=== PATIENT | male | born 1985 | race Two or more races ===

== ENCOUNTER 2024-05-02 11:35 | Emergency (ER) | payer MEDICAID, OTHER ==
[~2024-05-02] VITALS: Ht 175.3 cm; Wt 95.4 kg
[2024-05-02 12:14] VITALS: BP 133/87; PULSE 82; RESP 16; TEMP 98; O2SAT 98
[2024-05-02] MEDS: cefTRIAXone SOD 1,000 MG VL IM ONE (16:11)
[2024-05-02] MEDS ORDERED: CEPH500C PO (16:23)
[2024-05-02] MEDS ORDERED: IBUP-1454 PO (16:23)
== END 2024-05-02 16:26 | disposition home or self-care (01) ==
LOC: ER 11:41
DX: S60.552A Superficial foreign body of left hand, initial encounter (principal); Z79.899 Other long term (current) drug therapy; X58.XXXA Exposure to other specified factors, initial encounter; Y93.89 Activity, other specified; Y92.89 Other specified places as the place of occurrence of the external cause; Y99.8 Other external cause status
CPT/HCPCS: 10120; 76881; 96372; 99285; J0696

== ENCOUNTER 2024-10-10 01:51 | Emergency (ER) | payer MEDICAID ==
[~2024-10-10] VITALS: Ht 175.3 cm; Wt 90.0 kg
[~2024-10-10 01:51] MED LIST: CEPH500C PO; IBUP-1454 PO
[2024-10-10 02:13] VITALS: BP 149/89; PULSE 114; RESP 16; TEMP 98.6; O2SAT 98
[2024-10-10] MEDS ORDERED: DOXY100C4 PO (02:21)
[2024-10-10] MEDS ORDERED: IBUP-1456 PO (02:21)
--- NOTE | 2024-10-10 02:21 | ED.PDOC ---
History of Present Illness(SKN HPI Comments C/C of possible spider bite to left buttock. Noted redness, no odor, no drainage. Skin temperature WNL. Pt tachy at 114, other VSS. Denies PMH. NKDA denies nausea vomiting fever or chills. Chief Complaint: Insect Bite Time Seen by MD: 01:58 Primary Care Provider: TARIK History of Present Illness: Nurses Notes, Medications, Allergies Allergies: Coded Allergies: NO KNOWN ALLERGIES (Unverified , 05/02/24) Home Meds Active Scripts Ibuprofen (Ibuprofen) 800 Mg Tab, 1 TAB PO TID PRN for 4 Days, #12 TAB Prov:RUPAL SILVER NAIL GALVANIZER 10/10/24 Doxycycline Hyclate (Doxycycline Hyclate) 100 Mg Cap, 100 MG PO BID for 7 Days, #14 CAP Prov:RUPAL SILVER NAIL GALVANIZER 10/10/24 Cephalexin Monohydrate (Cephalexin) 500 Mg Cap, 1 CAP PO QID for 5 Days, #20 CAP 0 Refills Prov:VISHNU PENNINGTON NP 05/02/24 Ibuprofen (Ibuprofen) 600 Mg Tab, 1 TAB PO TIDWM for 10 Days, #30 TAB 0 Refills Prov:VISHNU PENNINGTON NP 05/02/24 Mode of Arrival: Ambulatory Past Medical History PAST MEDICAL HISTORY: Denies Surgical History: Denies all surgeries Family History Family History: Unknown Social History Smoker: Non-Smoker Alcohol: Denies ETOH Use Drugs: Denies Drug Use Constitutional: denies: chills, diaphoresis, fatigue, fever, malaise, sweats, weakness, others EENTM: denies: blurred vision, double vision, ear bleeding, ear discharge, ear drainage, ear pain, ear ringing, eye pain, eye redness, hearing loss, mouth pain, mouth swelling, nasal discharge, nose bleeding, nose congestion, nose pain, photophobia, tearing, throat pain, throat swelling, voice changes, others Respiratory: denies: cough, hemoptysis, orthopnea, SOB at rest, shortness of breath, SOB with excertion, stridor, wheezing, others Cardiovascular: denies: chest pain, dizzy spells, diaphoresis, Dyspnea on exertion, edema, irregular heart beat, left arm pain, lightheadedness, palpitations, PND, syncope, others Gastrointestinal: denies: abdomen distended, abdominal pain, blood streaked bowels, constipated, diarrhea, dysphagia, difficulty swallowing, hematemesis, melena, nausea, poor appetite, poor fluid intake, rectal bleeding, rectal pain, vomiting, others Genitourinary: denies: burning, dysuria, flank pain, frequency, hematuria, incontinence, penile discharge, penile sore, pain, testicle pain, testicle swelling, urgency, others Neurological: denies: dizziness, fainting, headache, left sided numbness, left sided weakness, numbness, paresthesia, pre-existing deficit, right sided numbness, right sided weakness, seizure, speech problems, tingling, tremors, weakness, others Musculoskeletal: denies: back pain, gout, joint pain, joint swelling, muscle pain, muscle stiffness, neck pain, others Integumetry: reports: rash (To left buttocks); denies: bruises, change in color, change in hair/nails, dryness, laceration, lesions, lumps, wounds, others Allergic/Immunocompromised: denies: Difficulty Healing, Frequent Infections, Hives, Itching, others Hematologic/Lymphatic: denies: anemia, blood clots, easy bleeding, easy bruising, swollen glands, others Endocrine: denies: excessive hunger, excessive sweating, excessive thirst, excessive urination, flushing, intolerance to cold, intolerance to heat, unexplained weight gain, unexplained weight loss, others Psychiatric: denies: anxiety, bipolar disorder, depression, hopeless, panic disorder, schizophrenia, sleepless, suicidal, others Physical Exam General Appearance: No Apparent Distress, Normal HEENT: Pharynx Normal Neck: Full Range of Motion, Non-Tender Respiratory: Lungs Clear, No Respiratory Distress, Normal Breath Sounds Cardiovascular: No Murmur, Normal Peripheral Pulses, Regular Rate/Rhythm Breast Exam: Deferred Gastrointestinal: Non Tender, Soft Genitalia: Deferred Pelvic: Deferred Rectal: Deferred Extremities: Normal capillary refill, Normal inspection, Normal range of motion, Non-tender, No pedal edema Musculoskeletal : Apperance: Normal Neurologic: Alert, production technologist II-XII nml as Tested, No Motor Deficits, Normal Affect, Normal Mood, No Sensory Deficits Cerebellar Function: Normal Reflexes: Normal Skin: Dry, Normal Color, Rash (Erythemic rash approximate half dollar size with center puncture wound no noted drainage or streaking), Warm Lymphatic: No Adenopathy Was a procedure done? Was a procedure done?: No Differential Diagnosis (INTG) Differential Diagnosis: Cellulitis Differential Diagnosis: Abscess X-Ray, Labs, Meds, VS Vital Signs Date Time Temp Pulse Resp B/P (MAP) Pulse Ox O2 Delivery O2 Flow Rate FiO2 10/10/24 02:13 98.6 114 16 149/89 (109) 98 98.6 10/10/24 02:13 114 16 98 Room Air 10/10/24 02:00 98.6 114 16 149/89 (109) 98 98.6 X-Ray, Labs, Meds, VS Comment Likely infected bug bite. Patient given Rocephin 1 g IM. [place] 10 mg p.o.. Reports improvement in pain and function requesting discharge at this time. Outpatient script doxycycline twice daily x7 days. Ibuprofen 800 mg t.i.d. PRN. Advised to follow up within 48 hours with his PCP urgent care or back here for wound re-evaluation. Take medications as prescribed side effects discussed. ER return precautions given patient indicates understanding agrees with discharge plan of care Time of 1ST Reevaluation: 02:15 Reevaluation 1ST: Improved Patient Education/Counseling: Diagnosis, Treatment, Prognosis, Need For Follow Up Family Education/Counseling: No Family Present Departure 1 Departure Time of Disposition: 02:20 Impression: Primary Impression: Bug bite with infection Qualified Codes: W57.XXXA - Bitten or stung by nonvenomous insect and other nonvenomous arthropods, initial encounter Disposition: HOME / SELF CARE / HOMELESS Condition: Stable e-Prescriptions Ibuprofen (Ibuprofen) 800 Mg Tab 1 TAB PO TID PRN for 4 Days, #12 TAB Prov: RUPAL SILVER 10/10/24 Doxycycline Hyclate (Doxycycline Hyclate) 100 Mg Cap 100 MG PO BID for 7 Days, #14 CAP Prov: RUPAL SILVER 10/10/24 Discharged With: Friend Critical Care Note Critical Care Time?: No Stability Stability form required: RUPAL Jones Oct 10, 2024 02:21
[2024-10-10] MEDS: HYDROcodone-ACET 5/325MG TAB PO ONE (02:27)
[2024-10-10] MEDS: cefTRIAXone SOD 1,000 MG VL IM ONE (02:28)
== END 2024-10-10 02:33 | disposition home or self-care (01) ==
LOC: ER 01:51
DX: S31.823A Puncture wound without foreign body of left buttock, initial encounter (principal); L08.9 Local infection of the skin and subcutaneous tissue, unspecified; W57.XXXA Bitten or stung by nonvenomous insect and other nonvenomous arthropods, initial encounter; Y93.89 Activity, other specified; Y92.89 Other specified places as the place of occurrence of the external cause; Y99.8 Other external cause status
CPT/HCPCS: 96372; 99283; J0696